=== PATIENT | female | born 2005 | race African-American/Black ===

== ENCOUNTER 2023-09-30 06:17 | Emergency (ER) | payer MEDICAID, SELFPAY ==
[2023-09-30 06:20] VITALS: BP 134/86; PULSE 99; RESP 20; TEMP 36.8; O2SAT 100
--- NOTE | 2023-09-30 06:24 | ED.BACK ---
HPI - Back Pain/Injury General Chief Complaint: Back Pain/Injury <Sarahi Reynolds MD - Last Filed: 09/30/23 19:59> Stated Complaint: lower back pain <Sarahi Reynolds MD - Last Filed: 09/30/23 19:59> Time Seen by Provider: 09/30/23 06:19 <Sarahi Reynolds MD - Last Filed: 09/30/23 19:59> History of Present Illness HPI Narrative: Patient presents with left lower back pain that started yesterday, denies any recent trauma or injury that she can think of, no dysuria, no fevers or chills or nausea or vomiting. Has not had symptoms like this before. Did try taking ibuprofen which did not help. <Sarahi Reynolds MD - Last Filed: 09/30/23 19:59> Related Data Allergies/Adverse Reactions: Allergies Allergy/AdvReac Type Severity Reaction Status Date / Time No Known Allergies Allergy Verified 09/30/23 06:23 <Sarahi Reynolds MD - Last Filed: 09/30/23 19:59> Review of Systems Review of Systems: All systems reviewed & are unremarkable except as noted in HPI and below <Sarahi Reynolds MD - Last Filed: 09/30/23 19:59> Exam Narrative: EXAMINATION OF ORGAN SYSTEMS/BODY AREAS: Constitutional: Vital signs per nursing GENERAL:[No acute distress, non-toxic appearing.] HEAD: Normal with no signs of head trauma. EYES: EOMI, conjunctiva normal ENT: Hearing grossly intact LUNGS: Nonlabored breathing. HEART: [Regular rate and rhythm] ABD: [Soft], [non tender to palpation] BACK: Mild tenderness to left lower back; no midline tenderness; no significant CVA tenderness EXT: Normal range of motion SKIN: [No rashes or lesions.] NEURO: [Alert and oriented x 3. No gross focal sensory or strength deficits.] Ambulating with normal steady gait PSYCH: Normal affect <Sarahi Reynolds MD - Last Filed: 09/30/23 19:59> Course Course Emergency Course: Discussed labs. Discharge home with oral antibiotics for UTI. <Brett Cadena MD - Last Filed: 09/30/23 09:33> Vital Signs Vital signs: Vital Signs Temperature 98.3 F 09/30/23 06:20 Pulse Rate 99 09/30/23 06:20 Respiratory Rate 20 09/30/23 06:20 Blood Pressure 134/86 09/30/23 06:20 Pulse Oximetry 100 09/30/23 06:20 Oxygen Delivery Room Air 09/30/23 06:20 Temperature 98.3 F 09/30/23 06:20 Pulse Rate 70 09/30/23 09:05 Respiratory Rate 17 09/30/23 09:05 Blood Pressure 116/82 09/30/23 09:05 Pulse Oximetry 100 09/30/23 09:05 Oxygen Delivery Room Air 09/30/23 06:20 <Sarahi Reynolds MD - Last Filed: 09/30/23 19:59> Vital Signs Temperature 98.3 F 09/30/23 06:20 Pulse Rate 99 09/30/23 06:20 Respiratory Rate 20 09/30/23 06:20 Blood Pressure 134/86 09/30/23 06:20 Pulse Oximetry 100 09/30/23 06:20 Oxygen Delivery Room Air 09/30/23 06:20 Temperature 98.3 F 09/30/23 06:20 Pulse Rate 70 09/30/23 09:05 Respiratory Rate 17 09/30/23 09:05 Blood Pressure 116/82 09/30/23 09:05 Pulse Oximetry 100 09/30/23 09:05 Oxygen Delivery Room Air 09/30/23 06:20 <Brett Cadena MD - Last Filed: 09/30/23 09:33> MDM - Back Pain/Injury MDM Narrative Medical decision making narrative: ED COURSE AND MEDICAL DECISION MAKINF with acute back pain. Normal motor and sensory exam. Patient able to ambulate. No evidence of acute cord compression, osteomyelitis/discitis or cauda equina without saddle anesthesia, urinary retention/incontinence, numbness/tingling in lower extremities, fever, history of IV drug use, cancer or immunosuppression. Doubt AAA or aortic dissection without severe pain/discomfort or any neurovascular deficits. I will obtain a urinalysis to rule out , doubt kidney stone without nausea or vomiting or severe pain, also considered possible UTI or pyelonephritis. Ketorolac 15mg IM given for symptomatic relief. At this time, I do not believe the patient requires imaging studies. Will reevaluate the need for further investigations after the medications. Signed out to oncom
[2023-09-30] MEDS: LIDOCAINE 5% PATCH 1 PATCH TRANSDERM (06:31)
[2023-09-30] MEDS: KETOROLAC 30 MG/ML VIAL (*BKC) IM (06:31)
[2023-09-30 06:45] LABS: Appearance Urine Cloudy (Clear); Bacteria Urine None Seen /hpf; Bilirubin Urine Negative (Negative); Blood Urine Negative (Negative); Color Urine Yellow (Yellow); Glucose Urine UA Negative (Negative); Ketones Urine Negative (Negative); Leukocyte Esterase Ur 2+ LEU/UL (Negative); Nitrate Urine Negative (Negative); Non Pathogenic Casts 0-2; Protein Urine Negative (Negative); RBC Urine 0-2 /hpf (0-2); Specific Grav Ur 1.023 (1.001-1.035); Squamous Epithelial Cell Urine Occasional /hpf (Few); Urobilinogen Urine 0.2 mg/dL (<2.0)
[2023-09-30 07:03] LABS: Add Urine Microscopic? YES
[2023-09-30 09:05] VITALS: BP 116/82; PULSE 70; RESP 17; O2SAT 100
== END 2023-09-30 09:38 | disposition home or self-care (01) ==
PROVIDERS: Emergency Medicine; Emergency Provider Emergency Medicine
DX: N39.0 Urinary tract infection, site not specified (principal); M54.50 Low back pain, unspecified
CPT/HCPCS: 81001; 81025; 87086; 96372; 99283; A9270; J1885

== ENCOUNTER 2025-04-07 06:31 | Emergency (ER) | payer OTHER, SELFPAY ==
--- NOTE | ~2025-04-07 | CT_ITS ---
EXAM/PROCEDURE: CT abdomen pelvis w con HISTORY: LLQ, rectal bleeding COMPARISON: None available. TECHNIQUE: Contrast-enhanced CT of the abdomen and pelvis FINDINGS: The bowel gas pattern is not obstructive with no free air or pneumatosis seen. Trace amount of free fluid may be present in the lower pelvis probably physiologic. Normal size appendix, aorta and gallbladder. No hydroureteronephrosis. Evaluation of the large intestine is somewhat limited due to absence of enteric contrast and pelvic contents but no discrete lesion or process seen to explain source of bleeding. Anteflex uterus and adnexal regions unremarkable. Bones appear intact. Lung bases clear and heart size normal. Liver spleen pancreas stomach and adrenal glands appear normal. Small hiatal hernia may be present. IMPRESSION: 1. No discrete lesion or mass seen to explain source of bleeding. Evaluation of the large intestine somewhat limited as above. 2. Small hiatal hernia. Reviewed, dictated and finalized at location A. [employer]
--- OUTSIDE RECORDS SUMMARY | 2025-04-07 06:34 | XMS_ITS | Clinical Summary ---
Author Organization [facility] Address [address] [place] [address] Care Team Providers Care Acid Etch Operator Name Role Phone Bayron Cortes MD Primary Care Provider [phone] Allergies No known active allergies Medications escitalopram (LEXAPRO) 10 MG tablet Take 1 tablet (10 mg total) by mouth daily. 07/01/2022 Active cetirizine (ZYRTEC) 10 MG tablet Take 1 tablet (10 mg total) by mouth daily. 30 tablet 07/21/2022 Active pseudoephedrine ER (SUDAFED 12 HOUR) 120 MG 12 hr tablet Take 1 tablet (120 mg total) by mouth every 12 (twelve) hours. 28 tablet 07/21/2022 Active Ferrous Gluconate 239 (27 Fe) MG Tab Take 1 tablet by mouth daily. 30 tablet 09/24/2024 Active Encounters Date Type Department Care Team Description 01/08/2025 5:35 PM CDT - 01/08/2025 8:[address] [facility] [place] [address] Jose Pop PA Abdominal Pain Discharge Disposition: Home or Self Care (Routine Discharge) 01/08/2025 Travel from Last 3 Months Immunizations Immunization Administration Dates Next Due PFIZER COVID-19 (ORIGINAL FO RMULATION, PURPLE CAP) mRNA, LNP-S, PF, 30 MCG/0.3 ML DOSE 12/18/2020,11/27/2020 Social History Tobacco Use Types Packs/Day Years Used Date Smoking Tobacco: Never Passive Smoke Exposure: Never Smokeless Tobacco: Never Tobacco Cessation:Counseling Given: Not Answered Alcohol Use Standard Drinks/Week Comments Not Currently 0 (1 standard drink = 0.6 oz pur e alcohol) Comments No Sex and Gender Information Value Date Recorded Sex Assigned at Female 09/24/2024 9:16 AM CDT Legal Sex Female 6:18 PM CDT Gender Identity Female 09/24/2024 9:16 AM CDT Sexual Orientation Not on file Last Filed Vital Signs Vital Sign Reading Time Taken Comments Blood Pressure 118/83 01/08/2025 7:55 PM CDT Pulse 82 01/08/2025 7:55 PM CDT Temperature 36.3 C (97.3 F) 01/08/2025 4:45 PM CDT Respiratory Rate 18 01/08/2025 7:55 PM CDT Oxygen Saturation 100% 01/08/2025 7:55 PM CDT Inhaled Oxygen Concentration - - Weight 88 kg (194 lb 0.1 oz) 01/08/2025 4:45 PM CDT Height 167.6 cm (5' 6) 01/08/2025 4:45 PM CDT Body Mass Index 31.31 01/08/2025 4:45 PM CDT Plan of Treatment Health Maintenance Due Date Last Done Comments Cervical Cancer Screening Pap Smear (Age 21 to 29) Every 3 Years 2003 Cervical Cancer Screening 2003 Annual Physical 2006 Meningococcal B Vaccine (1 of 2 - Standard) 2019 Hepatitis C 2021 DTaP, Tdap and Td Vaccines (6 - Td or Tdap) 08/31/2024 08/31/2014, 2009, 11/19/2006, Additional history exists COVID-19 Vaccine (3 - season) 2024 12/18/2020, 11/27/2020 Influenza Adult (#1) 2025 04/04/2013 Pneumococcal Vaccine: Pediatrics (0 to 5 Years) and At-Risk Patients (6 to 49 Years) Completed 04/05/2006, 2003 Hepatitis B Vaccines Completed 11/19/2006, 04/05/2006, 04/05/2006, Additional history exists HPV Vaccines Completed 11/24/2015, 08/31/2014 Meningococcal Vaccine Completed 11/24/2019, 015 Hepatitis A Vaccines Aged Out No long er eligible based on patient's age to complete this topic RSV Immunizations Under 20 Months Aged Out No longer eligible based on patient's age to complete this topic Procedures Procedure Name Priority Date/Time Associated Diagnosis Comments CT ABD+PEL W CON STAT 01/08/2025 6:50 PM CDT CULTURE, GENITAL W/ GRAM STAIN STAT 01/08/2025 5:45 PM CDT HC COMPREHENSIVE METABOLIC PANEL STAT 01/08/2025 5:45 PM CDT HC CBC AUTO W/AUTO DIFF STAT 01/08/2025 5:45 PM CDT HC HCG QN STAT 01/08/2025 5:45 PM CDT TRICHOMONAS ANTIGEN Routine 01/08/2025 5 :44 PM CDT CHLAM/GC/TRICHOMONAS PROFILE STAT 01/08/2025 5:44 PM CDT HC URINALYSIS AUTO W/O MICRO STAT 01/08/2025 5:44 PM CDT from Last 3 Months Results * CT ABD+PEL W IV CON ONLY (01/08/2025 6:50 PM CDT) Anatomical Region Laterality Modality Abdomen Computed Tomogra phy 01/08/2025 7:02 PM CDT Impressions 01/08/2025 8:15 PM CDT IMPRESSION: No acute findings within the abdomen or pelvis to explain the patient's symptoms. Preliminary: Star Khan MD01/08/2025 7:07 PM The attending radiologist has reviewed the image(s) and agrees with the content of this report. Ordered By: JOSE POP Interpreted By: Star Khan MD, 01/08/2025 7:02 PM Narrative 01/08/2025 8:15 PM CDT [address] [address] EXAMINATION: CT ABDOMEN/PELVIS WITH CONTRAST EXAM TIME: 01/08/2025 6:41 PM INDICATION: lower abdominal pain COMPARISON: None TECHNIQUE: Computed tomography of the abdomen, and pelvis was performed after administration of intravenous contrast, 100mL of IOPAMIDOL 76 % IV SOLN, without immediate complication, according to routine protocol. A dose lowering technique was used for this procedure, which may include, but is not limited to, dose reduction technique, automated exposure control, and/or the use of iterative reconstruction, in accordance with ALARA (As Low As Reasonably Achievable)/Image Gently principle. FINDINGS: Lower Chest: The visualized portions of the lung bases appear unremarkable. The visualized mediastinum demonstrates no pericardial effusion. The heart is normal in size. Hepatobiliary: The liver is normal in size and contour. The pancreas is negative. The gallbladder appears grossly normal. No biliary duct dilatation is noted. Genitourinary: The adrenal glands are normal. The kidneys enhance symmetrically. No renal calculus or hydronephrosis is seen. The urinary bladder is partially distended. The uterus and ovaries appear grossly normal. Gastrointestinal: No bowel obstruction or bowel wall thickening is seen. The appendix is normal. Moderate colonic stool burden is noted. Peritoneum: There is no free intraperitoneal air or fluid. Lymphatics: The spleen is normal in size. No mesenteric or retroperitoneal lymphadenopathy is seen. No pelvic or inguinal lymphadenopathy is seen. Vascular: The abdominal aorta is normal in caliber. The visceral vessels are patent. Musculoskeletal: No acute osseous abnormality or destructive bone lesion is identified. There is levocurvature of the thoracolumbar spine. Procedure Note Chris Byrd MD - 01/08/[address] [address] EXAMINATION: CT ABDOMEN/PELVIS WITH CONTRAST EXAM TIME: 01/08/2025 6:41 PM INDICATION: lower abdominal pain COMPARISON: None TECHNIQUE: Computed tomography of the abdomen, and pelvis was performedafter administration of intravenous contrast, 100mL of IOPAMIDOL 76 % IVSOLN, without immediate complication, according to routine protocol. Adose lowering technique was used for this procedure, which may include,but is not limited to, dose reduction technique, automated exposurecontrol, and/or the use of iterative reconstruction, in accordance withALARA (As Low As Reasonably Achievable)/Image Gently principle. FINDINGS: Lower Chest: The visualized portions of the lung bases appearunremarkable. The visualized mediastinum demonstrates no pericardialeffusion. The heart is normal in size. Hepatobiliary: The liver is normal in size and contour. The pancreas isnegative. The gallbladder appears grossly normal. No biliary ductdilatation is noted. Genitourinary: The adrenal glands are normal. The kidneys enhancesymmetrically. No renal calculus or hydronephrosis is seen. The urinarybladder is partially distended. The uterus and ovaries appear grosslynormal. Gastrointestinal: No bowel obstruction or bowel wall thickening is seen.The appendix is normal. Moderate colonic stool burden is noted. Peritoneum: There is no free intraperitoneal air or fluid. Lymphatics: The spleen is normal in size. No mesenteric or retroperitoneallymphadenopathy is seen. No pelvic or inguinal lymphadenopathy is seen. Vascular: The abdominal aorta is normal in caliber. The visceral vesselsare patent. Musculoskeletal: No acute osseous abnormality or destructive bone lesionis identified. There is levocurvature of the thoracolumbar spine. IMPRESSION: No acute findings within the abdomen or pelvis to explain the patient'ssymptoms. Preliminary: Star Khan MD01/08/2025 7:07 PM The attending radiologist has reviewed the image(s) and agrees with thecontent of this report. Ordered By: JOSE POP Interpreted By: Star Khan MD, 01/08/2025 7:[address] Final Resul t * (ABNORMAL) CULTURE, GENITAL W/ GRAM STAIN (01/08/2025 5:45 PM CDT) SPEC DESCRIPTION VAGINAL SPECIMEN 01/08/2025 6:06 PM CDT [facility] SPECIAL REQUESTS NO SPECIAL REQUEST 01/08/2025 6:06 PM CDT [facility] GRAM STAIN RESULT NEGATIVE FOR BACTERIAL VAGINOSIS 01/08/2025 9:34 PM CDT [facility] GRAM STAIN RESULT NO YEAST SEEN 01/08/2025 9:34 PM CDT [facility] CULTURE RESULT SPARSE GROWTH OF NORMAL ADITHYA PRESENT 01/10/2025 9:44 AM CDT [facility] CULTURE RESULT SPARSE GROWTH OF STREPTOCOCCI, BETA HEMOLYTIC GROUP B SUSCEPTIBILTY NOT ROUTINELY PERFORMED. SAVING ISOLATE FOR 5 DAYS. CONTACT MICROBIOLOGY DEPARTMENT IF FURTHER WORKUP IS INDICATED. (A) 01/10/2025 9:44 AM CDT [facility] VAGINAL STRUCTURE / Unknown 01/08/2025 5:45 PM CDT 01/08/2025 6:11 PM CDT Jose CREWS MICROBIOLOGY - GENERAL KRISTI POWERS Final Result [facility] [address] [place] [address], * (ABNORMAL) COMPREHENSIVE METABOLIC PANEL (01/08/2025 5:45 PM CDT) GLUCOSE 84 70 - 99 MG/DL 01/08/2025 6:36 PM CDT [facility] BUN 14 7 - 18 MG/DL 01/08/2025 6:36 PM CDT [facility] CREATININE S/P/B 0.75 0.55 - 1.02 MG/DL 01/08/2025 6:36 PM CDT [facility] SODIUM S/P/B 138 136 - 145 MMOL/L 01/08/2025 6:36 PM CDT [facility] POTASSIUM S/P/B 4.0 3.5 - 5.1 MMOL/L 01/08/2025 6:36 PM CDT [facility] CHLORIDE S/P/B 104 97 - 115 MMOL/L 01/08/2025 6:36 PM CDT [facility] CO2 27.2 21 - 32 MMOL/L 01/08/2025 6:36 PM CDT [facility] CALCIUM S/P/B 9.4 8.5 - 10.1 MG/DL 01/08/2025 6:36 PM CDT [facility] BILIRUBIN TOTAL S/P/B 0.3 0.2 - 1.2 MG/DL 01/08/2025 6:36 PM CDT [facility] Comment: THIS ASSAY IS NOT RECOMMENDED FOR PATIENTS UNDERGOING TREATMENT WITH ELTROMBOPAG DUE TO THE POTENTIAL FOR FALSELY ELEVATED RESULTS. TOTAL PROTEIN S/P/B 8.4(H) 6.4 - 8.2 G/DL 01/08/2025 6:36 PM CDT [facility] ALBUMIN S/P/B 3.8 3.4 - 5.0 G/DL 01/08/2025 6:36 PM CDT [facility] AST 9(L) 15 - 37 U/L 01/08/2025 6:36 PM T [facility] ALT 17 14 - 55 U/L 01/08/2025 6:36 PM CDT [facility] ALKALINE PHOSPHATASE S/P/B 80 50 - 136 U/L 01/08/2025 6:36 PM T [facility] ANION GAP 6.8 2 - 10 MMOL/L 01/08/2025 6:36 PM CDT [facility] BUN CREATININE RATIO 18.6 6 - 26 01/08/2025 6:36 PM CDT [facility] A/G RATIO 0.8(L) 1.0 - 2.0 RATIO 01/08/2025 6:36 PM CDT [facility] GFR ESTIMATE >90 >90 ML/MIN/1.7 3 M2 01/08/2025 6:36 PM CDT [facility] Comment: NOTE: eGFR is not calculated for patients <18 years of age or gender unknown. This is an estimated GFR calculation using the new CKD EPI creatinine equation without race and so does not require a correction factor for race. This estimated GFR should not be used for calculating drug doses. 01/08/2025 5:45 PM CDT [facility] Final Resul t Performing Organization Address City/[facility]/ZIP Co de Phone Number [facility] [address] [place] [phone], * Quantitative HCG (01/08/2025 5:45 PM CDT) HCG QUANTITATIVE <1 MIU/ML 01/09/20 6:36 PM CDT [facility] Comment: WEEKS OF REFERENCE RANGES Non- female < or = 2 0.2 - 1 5 - 50 1 - 2 50 - 500 2 - 3 100 - 5000 3 - 4 500 - 10,000 4 - 5 1000 - 50,000 5 - 6 10,000 - 100,000 6 - 8 15,000 - 200,000 2 - 3 MONTHS 10,000 - 100,000 01/08/2025 5:45 PM CDT [facility] Final Resul t [facility] [address] [place] [address], [place] [phone] * (ABNORMAL) CBC W/DIFF AUTOMATED (01/08/2025 5:45 PM CDT) WBC 9.38 4.5 - 11.0 x10'3/uL 01/08/2025 6:26 PM CDT [facility] RBC 4.67 4.20 - 5.40 x10'6/uL 01/08/2025 6:26 PM CDT [facility] HGB 10.7(L) 12.0 - 16.0 G/DL 01/08/2025 6:26 PM CDT [facility] HCT 34.4(L) 38.0 - 48.0 % 01/08/2025 6:26 PM CDT [facility] MCV 73.7(L) 81.0 - 99.0 FL 01/08/2025 6:26 PM CDT [facility] MCH 22.9(L) 27.0 - 31.0 PG 01/08/2025 6:26 PM CDT [facility] MCHC 31.1(L) 32.0 - 36.0 G/DL 01/08/2025 6:26 PM CDT [facility] RDW 16.7(H) 11.5 - 14.5 % 01/08/2025 6:26 PM CDT [facility] PLT 398 130 - 400 x10'3/uL 01/08/2025 6:26 PM CDT [facility] MPV 8.8(L) 9.3 - 12.2 FL 01/08/2025 6:26 PM CDT [facility] DIFFERENTIAL TYPE AUTOMATED DIFFERENTIAL 01/08/2025 6:46 PM CDT [facility] NEUTROPHILS % 53.1 % 01/08/2025 6:46 PM CDT [facility] LYMPHOCYTES % 40.7 % 01/08/2025 6:46 PM CDT [facility] MONOCYTES % 5.1 % 01/08/2025 6:46 PM CDT [facility] EOSINOPHILS 0.4 % 01/08/2025 6:46 PM CDT [facility] BASOPHILS 0.4 % 01/08/2025 6:46 PM CDT [facility] IMMATURE GRANS % 0.3 % 01/09/20 6:46 PM CDT [facility] ABS. NEUTROPHILS 4.97 1.80 - 7.70 x10'3/uL 01/08/2025 6:46 PM CDT [facility] ABS. LYMPHOCYTES 3.82 1.00 - 4.80 x10'3/uL 01/08/2025 6:46 PM CDT [facility] ABS. MONOCYTES 0.48 0.24 - 0.86 x10'3/uL 01/08/2025 6:46 PM CDT [facility] ABS. EOSINOPHILS 0.04 0.04 - 0.36 x10'3/uL 01/08/2025 6:46 PM CDT [facility] ABS. BASOPHILS 0.04 0.01 - 0.08 x10'3/uL 01/08/2025 6:46 PM CDT [facility] ABS. IMMATURE GRANULOCYTES 0.03 0.00 - 0.49 x10'3/uL 01/08/2025 6:46 PM CDT [facility] RBC MORPHOLOGY SLIDE REVIEWED 2024 6:46 PM CDT [facility] HYPOCHROMASIA 1+ 01/08/2025 6:46 PM CDT [facility] MICRO 1+ 01/08/2025 6:46 PM CDT [facility] PLT EST. ADEQUATE 01/08/2025 6:46 PM CDT [facility] 01/08/2025 5:45 PM CDT [facility] Final Resul t [facility] [address] [place] [address], [place] [phone] * TRICHOMONAS ANTIGEN (01/08/2025 5:44 PM CDT) TRICHOMONAS NEGATIVE NEGATIVE 01/08/2025 6:41 PM CDT [facility] 01/08/2025 5:44 PM CDT Jose [facility]WS MICROBIOLOGY - GENERAL ORDE RABROSIE Final Result [facility] [address] [place] [address], [place] [phone] * CHLAM/GC/TRICHOMONAS PROFILE (01/08/2025 5:44 PM CDT) SPEC DESCRIPTION UNKNOWN 01/09/20 25 6:11 PM CDT [facility] CHLAMYDIA RNA TMA NEGATIVE NEGATIVE 025 2:48 PM CDT [facility] Comment:PERFORMED BY NUCLEIC ACID AMPLIFICATION N.GONORRHOEAE RNA TMA NEGATIVE NEGATIVE 01/09/2025 2:48 PM CDT [facility] Comment:PERFORMED BY NUCLEIC ACID AMPLIFICATION TRICHOMONAS NEGATIVE NEGATIVE 01/09/2025 2:48 PM CDT [facility] Comment:PERFORMED BY NUCLEIC ACID AMPLIFICATION VAGINAL STRUCTURE / Unknown 01/08/2025 5:44 PM CDT Jose CREWS MICROBIOLOGY - GENERAL ORDLarry POWERS Final Result [facility] [address] [place] [address], [place] [phone] [facility] [address] [place] [address], [place] [phone] * URINALYSIS (01/08/2025 5:44 PM CDT) SPECIMEN TYPE URINE CLEAN CATCH 01/08/2025 6:05 PM CDT [facility] COLOR (U) LIGHT YELLOW 01/08/2025 6:18 PM CDT [facility] TRANSPARENCY CLEAR 01/08/2025 6:18 PM CDT [facility] SPECIFIC GRAVITY (U) 1.025 1.001 - 1.030 01/08/2025 6:18 PM CDT [facility] U PH 6.5 5.0 - 9.0 01/08/2025 6:18 PM CDT [facility] LEUKOCYTES (U) NEGATIVE NEGATIVE 01/08/2025 6:18 PM CDT [facility] NITRITES NEGATIVE NEGATIVE 01/08/2025 6:18 PM CDT [facility] PROTEIN RANDOM (U) NEGATIVE <30 MG/DL 01/08/2025 6:18 PM CDT [facility] GLUCOSE (U) NORMAL NORMAL MG/DL 01/08/2025 6:18 PM CDT [facility] KETONES MG/DL (U) NEGATIVE NEGATIVE MG/DL 01/08/2025 6:18 PM CDT [facility] UROBILINOGEN NORMAL NORMAL MG/DL 01/08/2025 6:18 PM CDT [facility] BILIRUBIN (U) NEGATIVE NEGATIVE MG/DL 01/08/2025 6:18 PM CDT [facility] BLOOD (U) NEGATIVE NEGATIVE 01/08/2025 6:18 PM CDT [facility] URINE SPECIMEN OBTAINED BY CLEAN CATCH PROCEDURE / Unknown 01/08/2025 5:44 PM CDT us Jose CREWS URINE ORDERABLES Final Resu lt [facility] [address] [place] [address], from Last 3 Months Insurance [employer] Care Teams Acid Etch Operator Relationship Specialty Start Date End Date Bayron Cortes MD [address] [facility] [address] [place] [address] PCP - General FAMILY PRACTICE 03/31/24
--- OUTSIDE RECORDS SUMMARY | 2025-04-07 06:34 | XMS_ITS | Clinical Summary ---
Author Organization [facility] Address [address] [place] [id number] Care Team Providers Care Registered Nurse Nursery Name Role Phone Bayron Cortes MD Primary Care Provider [phone] Allergies No known active allergies Medications ondansetron ODT (ZOFRAN-ODT) 4 mg disintegrating tablet Take 1 tablet (4 mg total) by mouth every 8 (eight) hours as needed for nausea or vomiting 20 tablet 5 Active ketorolac (TORADOL) 10 mg tablet Take 1 tablet (10 mg total) by mouth every 6 (six) hours as needed for pain 20 tablet 5 Active Active Problems No known active problems Encounters Date Type Department Care Team Description 03/03/[address] [address] Suzette Celeste RN 03/02/2025 4:46 AM VETERINARY TECHNICIAN ASSISTANT - 03/02/2025 6:36 AM VETERINARY TECHNICIAN ASSISTANT Emergency [address] [address] Discharge Disposition: Left without being seen 01/22/2025 Patient Self-Triage [facility] [address] [place] [address] Oviido Bui Provider 01/07/2025 3:20 AM CDT - 01/07/2025 4:01 AM CDT Emergency [address] [address] Abdominal pain (Primary Dx); Vaginal discharge; Viral URI; Anemia, unspecified type Discharge Disposition: Discharge to home or self care 01/07/[address] [address] Suzette Celeste RN 01/06/2025 10:51 AM CDT - 01/06/2025 1:18 PM CDT Emergency [address] [address] Discharge Disposition: Left without being seen from Last 3 Months Medical History Medical History Date Comments Depression Anemia Anxiety Tachycardia Asthma SVT (supraventricular tachycardia) Social History Tobacco Use Types Packs/Day Years Used Date Smoking Tobacco: Never Tobacco Cessation:Counseling Given: Not Answered Personal Safety Answer Date Recorded Have you ever been in or are you currently in a harmful physical or emotional relationship or is someone making you feel afraid or unsafe? Denies 03/02/2025 Comments Unknown Sex and Gender Information Value Date Recorded Sex Assigned at Not on file Legal Sex Female 7:58 PM CDT Gender Identity Not on file Sexual Orientation Not on file Last Filed Vital Signs Vital Sign Reading Time Taken Comments Blood Pressure 126/81 03/02/2025 4:50 AM VETERINARY TECHNICIAN ASSISTANT Pulse 85 03/02/2025 4:50 AM VETERINARY TECHNICIAN ASSISTANT Temperature 37.1 C (98.8 F) 03/02/2025 4:50 AM VETERINARY TECHNICIAN ASSISTANT Respiratory Rate 18 03/02/2025 4:50 AM VETERINARY TECHNICIAN ASSISTANT Oxygen Saturation 100% 03/02/2025 4:50 AM VETERINARY TECHNICIAN ASSISTANT Inhaled Oxygen Concentration - - Weight 87.5 kg (193 lb) 01/07/2025 1:39 AM CDT Height 167.6 cm (5' 6) 01/07/2025 1:39 AM CDT Body Mass Index 31.15 01/07/2025 1:39 AM CDT Plan of Treatment Health Maintenance Due Date Last Done Comments Cervical Cancer Screening 2003 Depression Screening 2003 Hepatitis C Screening 2003 Meningococcal B Vaccine (1 o f 2 - Standard) 2019 Regular Well Visit/Exam 18-64 2021 DTaP/Tdap/Td Vaccine (6 - Td or Tdap) 08/31/2024 08/31/2014, 2009, 11/19/2006, Additional history exists Covid-19 Vaccine (3 - 2024-2 6 season) 2024 12/18/2020, 11/27/2020 Influenza Vaccine (#1) 2024 04/04/2013 Pneumococcal vaccine <65 Completed 04/05/2006, 02/21 Hepatitis B Screening Completed 11/19/2006 , 04/05/2006, 04/05/2006, Additional history exists Varicella Vaccines Completed 2009, 0 11/19/2006, 04/05/2006 HPV Vaccines Completed 11/24/2015, 08/31/2014 Procedures Procedure Name Priority Date/Time Associated Diagnosis Comments URINALYSIS, MICROSCOPIC ONLY STAT 03/02/2025 5:10 AM VETERINARY TECHNICIAN ASSISTANT URINE CULTURE STAT 03/02/2025 5:10 AM VETERINARY TECHNICIAN ASSISTANT URINALYSIS AND REFLEX TO MICROSCOPIC AND CULTURE STAT 03/02/2025 5:10 AM VETERINARY TECHNICIAN ASSISTANT POCT HCG, URINE Routine 03/02/2025 5:00 AM VETERINARY TECHNICIAN ASSISTANT EGFR STAT 03/02/2025 4:59 AM VETERINARY TECHNICIAN ASSISTANT DIFFERENTIAL AUTO STAT 03/02/2025 4:5 9 AM VETERINARY TECHNICIAN ASSISTANT ANTIBODY SCREEN STAT 03/02/2025 4:59 AM VETERINARY TECHNICIAN ASSISTANT ABO/RH STAT 03/02/2025 4:59 AM VETERINARY TECHNICIAN ASSISTANT TYPE AND SCREEN STAT 03/02/2025 4:59 AM VETERINARY TECHNICIAN ASSISTANT COMPREHENSIVE METABOLIC PANEL STAT 03/02/2025 4:59 AM VETERINARY TECHNICIAN ASSISTANT CBC WITH AUTO DIFFERENTIAL STAT 03/02/2025 4:59 AM VETERINARY TECHNICIAN ASSISTANT VAGINITIS PANEL Routine 01/07/2025 3:47 AM CDT POCT HCG, URINE Routine 01/07/2025 1:58 AM CDT URINALYSIS, MICROSCOPIC ONLY STAT 01/07/2025 1:56 AM CDT URINALYSIS AND REFLEX TO MICROSCOPIC AND CULTURE STAT 01/07/2025 1:56 AM CDT EGFR STAT 01/07/2025 1:52 AM CDT DIFFERENTIAL AUTO STAT 01/07/2025 1:5 2 AM CDT LIPASE STAT 01/07/2025 1:52 AM CDT COMPREHENSIVE METABOLIC PANEL STAT 01/07/2025 1:52 AM CDT CBC WITH AUTO DIFFERENTIAL STAT 01/07/2025 1:52 AM CDT STREPTOCOCCUS GROUP A PCR STAT 01/06/2025 11:02 AM CDT INFLUENZA A/B, RSV, AND COVID-19 PCR STAT 01/06/2025 11:02 AM CDT from Last 3 Months Results * (ABNORMAL) Urinalysis reflex to microscopic and culture Urine (03/02/2025 5:10 AM VETERINARY TECHNICIAN ASSISTANT) Color, ur Red(A) Yellow Clarity, ur Turbid(A) Clear [facility] Specific gravity, ur 1.035(H) 1.003 - 1.030 [facility] pH, urine 6.5 [facility] Comment: Interpretive Data U rine pH is affected by diet, medications, systemic acid-base disturbances, and renal tubular function. pH may affect urinary stone formation. For example, urine pH below 6.0 may help reduce the tendency for calcium phosphate stones and pH greater than 6.0 may reduce the tendency for uric acid stone formation. Source: [facility] 9+ Current Interpretive Data was last revised on 2017 Protein, ur ql 1+(A) Negative [facility] Glucose, ur ql Negative Negative [facility] Ketones, ur Trace Negative [facility] Bilirubin, ur Negative Negative [facility] Blood, ur 3+(A) Negative [facility] Urobilinogen, ur 2.0(A) <2.0 mg/dL [facility] Nitrite, ur Negative Negative [facility] Leukocyte esterase, ur 3+(A) Negative [facility] UA reflex comment Reflex to microscopic UA will be performed. [facility] Urine 03/02/2025 5:10 AM VETERINARY TECHNICIAN ASSISTANT 03/02/2025 5:14 AM VETERINARY TECHNICIAN ASSISTANT Ernestine CREWS LAB MICROBIOLOGY - GENERAL ORDE RABLES Final Result Performing Organization Address [facility] de Phone Number [address] [address] * (ABNORMAL) Urinalysis, microscopic only (03/02/2025 5:10 AM VETERINARY TECHNICIAN ASSISTANT) WBC, ur 21-50(A) 0 - 5 /HPF RBC, ur >50(A) 0 - 2 /HPF [facility] Epithelial cells, squamous, ur 6-10(A) 0 - 5 /HPF [facility] Comment:Suggestive of contam ination. Consider recollection by clean catch. Mucous, ur Present(A) [facility] Culture Reflex Comment Reflex to urine culture will be performed. [facility] Urine 03/02/2025 5:10 AM VETERINARY TECHNICIAN ASSISTANT 03/02/2025 5:14 AM VETERINARY TECHNICIAN ASSISTANT us Ernestine CREWS LAB URINE ORDERABLES Final Resu lt Performing Organization Address [facility] de Phone Number [address] [address] * Urine culture Urine (03/02/2025 5:10 AM VETERINARY TECHNICIAN ASSISTANT) Report Final Report: Less than 100,000 colonies/mL (clinically insignificant growth based on current clinical standards) Comment:Testing performed by : [facility], [address] [facility], [place]., [address] Organism (CLINICALLY INSIGNIFICANT GROWTH [facility] Urine 03/02/2025 5:10 AM VETERINARY TECHNICIAN ASSISTANT 03/02/2025 9:04 AM VETERINARY TECHNICIAN ASSISTANT Narrative [facility] - 03/03/2025 10:54 AM VETERINARY TECHNICIAN ASSISTANT Urine culture reflexed based upon urinalysis results. Testing performed by [facility] ([phone]) us Ernestine CREWS LAB MICROBIOLOGY - GENERAL ORDE RABLES Final Result [facility]LLA [address] [facility] Department [place] [address] * POCT hCG, urine (03/02/2025 5:00 AM VETERINARY TECHNICIAN ASSISTANT) HCG, ur, POC Negative Negative Lot Number [id number] QC Backgroud Clear Acceptable QC Control Line Acceptable Urine 03/02/2025 5:00 AM VETERINARY TECHNICIAN ASSISTANT Ernestine CREWS POINT OF CARE TEST ORDERABLES F inal Result * eGFR (03/02/2025 4:59 AM VETERINARY TECHNICIAN ASSISTANT) eGFR >90 >=60 mL/min/1. 73 m2 Comment: Interpretive Data Reference Interval Normal >/= 90 mL/min/1.73m2 Mildly decreased* 60 - 89 mL/min/1.73m2 Mildly to moderately decreased 45 - 59 mL/min/1.73m2 Moderately to severely decreased 30 - 44 mL/min/1.73m2 Severely decreased 15 - 29 mL/min/1.73m2 Kidney Failure < 15 mL/min/1.73m2 *Relative to young adult level Estimated glomerular filtration rate is determined by the 2020 CKD-EPI equation recommended by the National Kidney Foundation (A Unifying Approach to GFR Estimation: Recommendations of the NKF-ASK Task Force on Reassessing the Inclusion of Race in Diagnosing Kidney Disease, JASN 2020). The CKD-EPI equation should not be used for patients with unstable renal function and has not been validated in children and those over 70. Current interpretive data was last reviewed 2021. Blood 03/02/2025 4:59 AM VETERINARY TECHNICIAN ASSISTANT 03/02/2025 5:14 AM VETERINARY TECHNICIAN ASSISTANT us Ernestine CREWS LAB BLOOD ORDERABLES Final Resu lt [facility] [address] [facility] Department [place] [address] * Differential, auto (03/02/2025 4:59 AM VETERINARY TECHNICIAN ASSISTANT) Neutrophil abs 4.03 1.50 - 6.50 K/cumm Imm gran abs 0.01 0.00 - 0.10 K/cumm [facility] Lymphocyte abs 3.06 0.80 - 3.30 K/cumm [facility] Monocyte abs 0.52 0.20 - 0.80 K/cumm [facility] Eosinophil abs 0.06 0.00 - 0.50 K/cumm [facility] Basophil abs 0.03 0.00 - 0.10 K/cumm [facility] Neutrophil pct 52.3 % [facility] Comment: Interpretive Data Percent cell count reference ranges are not reported, since discordance with absolute values may lead to misinterpretation of CBC data. Current Interpretive Data was last revised on 2017. Imm gran pct 0.1 % [facility] Comment: Interpretive Data Percent cell count reference ranges are not reported, since discordance with absolute values may lead to misinterpretation of CBC data. Current Interpretive Data was last revised on 2017. Lymphocyte pct 39.7 % [facility] Comment: Interpretive Data Percent cell count reference ranges are not reported, since discordance with absolute values may lead to misinterpretation of CBC data. Current Interpretive Data was last revised on 2017. Monocyte pct 6.7 % [facility] Comment: Interpretive Data Percent cell count reference ranges are not reported, since discordance with absolute values may lead to misinterpretation of CBC data. Current Interpretive Data was last revised on 2017. Eosinophil pct 0.8 % [facility] Comment: Interpretive Data Percent cell count reference ranges are not reported, since discordance with absolute values may lead to misinterpretation of CBC data. Current Interpretive Data was last revised on 2017. Basophil pct 0.4 % [facility] Comment: Interpretive Data Percent cell count reference ranges are not reported, since discordance with absolute values may lead to misinterpretation of CBC data. Current Interpretive Data was last revised on 2017. Blood 03/02/2025 4:59 AM VETERINARY TECHNICIAN ASSISTANT 03/02/2025 5:14 AM VETERINARY TECHNICIAN ASSISTANT Ernestine CREWS LAB BLOOD ORDERABLES Final Resu lt [facility] BELLA [address] [place] [address] * (ABNORMAL) CBC with auto differential (03/02/2025 4:59 AM VETERINARY TECHNICIAN ASSISTANT) [facility] WBC 7.71 3.80 - 9.90 K/cumm Hgb 10.6(L) 11.9 - 15.5 g/dL [facility] Hct 35.1(L) 35.6 - 45.5 % [facility] Plt 418(H) 150 - 400 K/cumm [facility] MPV 8.6(L) 9.1 - 12.3 fL [facility] RBC 4.48 3.90 - 5.20 M/cumm [facility] MCV 78.3(L) 81.3 - 96.4 fL [facility] MCH 23.7(L) 27.1 - 33.3 pg [facility] MCHC 30.2(L) 32.3 - 35.7 g/dL [facility] RDW CV 16.7(H) 11.1 - 14.9 % [facility] RDW SD 47.7 35.7 - 48.1 fL [facility] NRBC abs 0.00 0.00 - 0.01 K/cumm [facility] Blood Venous blood specimen / Unknown 03/02/2025 4:59 AM VETERINARY TECHNICIAN ASSISTANT 03/02/2025 5:14 AM VETERINARY TECHNICIAN ASSISTANT Ernestine CREWS LAB BLOOD ORDERABLES Final Resu lt REBECCA [address] [place] [address] * ABO/Rh (03/02/2025 4:59 AM VETERINARY TECHNICIAN ASSISTANT) [facility] ABO/Rh O Negative Blood 03/02/2025 4:59 AM VETERINARY TECHNICIAN ASSISTANT 03/02/2025 5:14 AM VETERINARY TECHNICIAN ASSISTANT Narrative [facility] - 03/02/2025 5:51 AM VETERINARY TECHNICIAN ASSISTANT Has the patient had Daratumumab or Isatuximab in the past 6 months?->Unknown Ernestine CREWS LAB BLOOD BANK TEST ORDERABLES Final Result Performing Organization Address [facility] de Phone Number [address] [address] * Antibody screen (03/02/2025 4:59 AM VETERINARY TECHNICIAN ASSISTANT) [facility] Oziel, indirect, Gel Interpretation Negative ABSC Blood 03/02/2025 4:59 AM VETERINARY TECHNICIAN ASSISTANT 03/02/2025 5:14 AM VETERINARY TECHNICIAN ASSISTANT Narrative [facility] - 03/02/2025 5:51 AM VETERINARY TECHNICIAN ASSISTANT Has the patient had Daratumumab or Isatuximab in the past 6 months?->Unknown Ernestine CREWS LAB BLOOD BANK TEST ORDERABLES Final Result Performing Organization Address [facility] Phone Number [address] [address] * Comprehensive metabolic panel (03/02/2025 4:59 AM VETERINARY TECHNICIAN ASSISTANT) [facility] Sodium 141 135 - 145 mmol/L Potassium, pl 4.3 3.3 - 4.9 mmol/L [facility] Chloride 106 97 - 110 mmol/L [facility] CO2 24 22 - 32 mmol/L [facility] Anion gap 11 2 - 15 mmol/L [facility] BUN 19 6 - 25 mg/dL [facility] Creatinine 0.69 0.60 - 1.10 mg/dL [facility] Glucose 98 70 - 199 mg/dL [facility] Comment: Interpretive Data Fasting glucose >/= 126 mg/dl is diagnostic for diabetes. Fasting is defined as no caloric intake for at least 8 hours. Fasting glucose between 100 mg/dl to 125 mg/dl is diagnostic of prediabetes. In a patient with classic symptoms of hyperglycemia or hyperglycemic crisis, a random glucose >/= 200 mg/dl is diagnostic for diabetes. In the absence of unequivocal hyperglycemia, results should be confirmed by repeat testing. The classification and Diagnosis of Diabetes Diabetes Care 2021; 46: S19-S40. Current interpretive data was last revised 2022. Calcium 9.2 8.5 - 10.3 mg/dL [facility] Bilirubin, total <0.2 0.1 - 1.2 mg/dL [facility] Protein, pl 7.8 6.5 - 8.5 g/dL [facility] Albumin 4.1 3.5 - 5.0 g/dL [facility] Alk phos 77 40 - 130 Units/L [facility] ALT 8 7 - 45 Units/L [facility] AST 16 10 - 45 Units/L [facility] Blood 03/02/2025 4:59 AM VETERINARY TECHNICIAN ASSISTANT 03/02/2025 5:14 AM VETERINARY TECHNICIAN ASSISTANT Ernestine CREWS LAB BLOOD ORDERABLES Final Resu lt [facility] [address] [facility] Department [place] [address] * Vaginitis panel Vaginal (01/07/2025 3:47 AM CDT) Bacterial Vaginosis Not Detected Not Detected Comment:A negative result do es not preclude a possible infection. Results should be considered in conjunction with clinical presentation to determine the disease status. [place] group Not Detected Not Detected [facility] Georgia glabrata/ krusei Not Detected Not Detected [facility] Trichomonas DNA Not Detected Not Detected [facility] Vaginal 01/07/2025 3:47 AM CDT 01/07/2025 3:49 AM CDT Narrative [facility] - 01/07/2025 5:06 AM CDT The [employer] Xpert Xpress MVP test detects DNA targets from anaerobic bacteria associated with bacterial vaginosis, [place] species associated with vulvovaginal candidiasis, and Trichomonas vaginalis by nucleic acid amplification testing (NAAT). Results should be interpreted in conjunction with other clinical data. This test cannot be used to assess therapeutic success or failure because target nucleic acids may persist following antimicrobial therapy. This test has been cleared by the [place] Food and Drug Administration to aid in the diagnosis of vaginal infections in symptomatic women ages 14 and older. The performance characteristics of this test have been verified by the [facility]. The [employer] Xpert Xpress MVP test detects DNA targets from anaerobic bacteria associated with bacterial vaginosis, [place] species associated with vulvovaginal candidiasis, and Trichomonas vaginalis by nucleic acid amplification testing (NAAT). Results should be interpreted in conjunction with other clinical data. This test cannot be used to assess therapeutic success or failure because target nucleic acids may persist following antimicrobial therapy. This test has been cleared by the [place] Food and Drug Administration to aid in the diagnosis of vaginal infections in symptomatic women ages 14 and older. The performance characteristics of this test have been verified by the [facility]. us Thai CREWS LAB MICROBIOLOGY - GENERAL O RDERABLES Final Result [facility] [address] [facility] Department [place] [address] * POCT hCG, urine (01/07/2025 1:58 AM CDT) HCG, ur, POC Negative Negative Lot Number [id number] QC Backgroud Clear Acceptable QC Control Line Acceptable Urine 01/07/2025 1:58 AM CDT Tin Evans MD POINT OF CARE TEST ORDERABLES Fi nal Result * (ABNORMAL) Urinalysis reflex to microscopic and culture Urine (01/07/2025 1:56 AM CDT) Color, ur Yellow Yellow Clarity, ur Cloudy(A) Clear [facility] Specific gravity, ur 1.032(H) 1.003 - 1.030 [facility] pH, urine 6.0 [facility] Comment: Interpretive Data U rine pH is affected by diet, medications, systemic acid-base disturbances, and renal tubular function. pH may affect urinary stone formation. For example, urine pH below 6.0 may help reduce the tendency for calcium phosphate stones and pH greater than 6.0 may reduce the tendency for uric acid stone formation. Source: [facility] 9+ Current Interpretive Data was last revised on 2017 Protein, ur ql 1+(A) Negative [facility] Glucose, ur ql Negative Negative [facility] Ketones, ur Trace Negative [facility] Bilirubin, ur Negative Negative [facility] Blood, ur Negative Negative [facility] Urobilinogen, ur 2.0(A) <2.0 mg/dL [facility] Nitrite, ur Negative Negative [facility] Leukocyte esterase, ur 2+(A) Negative [facility] UA reflex comment Reflex to microscopic UA will be performed. [facility] Urine 01/07/2025 1:56 AM CDT 01/07/2025 2:02 AM CDT Tin Evans MD LAB MICROBIOLOGY - GENERAL ORDER YUSUF Final Result Performing Organization Address [facility] de Phone Number [address] [employer] [place], [place] [id number] * (ABNORMAL) Urinalysis, microscopic only (01/07/2025 1:56 AM CDT) Pathologist [facility] WBC, ur 6-10(A) 0 - 5 /HPF RBC, ur 3-5(A) 0 - 2 /HPF [facility] Epithelial cells, squamous, ur >50(A) 0 - 5 /HPF [facility] Comment:Suggestive of contam ination. Consider recollection by clean catch. Bacteria, ur Trace(A) [facility] Mucous, ur Present(A) [facility] Culture Reflex Comment Reflex conditions for urine culture (WBC >10) not met. [facility] Urine 01/07/2025 1:56 AM CDT 01/07/2025 2:02 AM CDT us Tin Evans MD LAB URINE ORDERABLES Final Resul t Performing Organization Address [facility] de Phone Number [address] [employer] [place], [place] [id number] * eGFR (01/07/2025 1:52 AM CDT) Pathologist [facility] eGFR >90 >=60 mL/min/1. 73 m2 Comment: Interpretive Data Reference Interval Normal >/= 90 mL/min/1.73m2 Mildly decreased* 60 - 89 mL/min/1.73m2 Mildly to moderately decreased 45 - 59 mL/min/1.73m2 Moderately to severely decreased 30 - 44 mL/min/1.73m2 Severely decreased 15 - 29 mL/min/1.73m2 Kidney Failure < 15 mL/min/1.73m2 *Relative to young adult level Estimated glomerular filtration rate is determined by the 2020 CKD-EPI equation recommended by the National Kidney Foundation (A Unifying Approach to GFR Estimation: Recommendations of the NKF-ASK Task Force on Reassessing the Inclusion of Race in Diagnosing Kidney Disease, JASN 2020). The CKD-EPI equation should not be used for patients with unstable renal function and has not been validated in children and those over 70. Current interpretive data was last reviewed 2021. Blood 01/07/2025 1:52 AM CDT 01/07/2025 2:02 AM CDT us Tin Evans MD LAB BLOOD ORDERABLES Final Resul t [facility] [address] [facility] Department [place] [address] * (ABNORMAL) Differential, auto (01/07/2025 1:52 AM CDT) Pathologist [facility] Neutrophil abs 4.52 1.50 - 6.50 K/cumm Imm gran abs 0.02 0.00 - 0.10 K/cumm [facility] Lymphocyte abs 3.77(H) 0.80 - 3.30 K/cumm [facility] Monocyte abs 0.80 0.20 - 0.80 K/cumm [facility] Eosinophil abs 0.08 0.00 - 0.50 K/cumm [facility] Basophil abs 0.03 0.00 - 0.10 K/cumm [facility] Neutrophil pct 49.0 % [facility] Comment: Interpretive Data Percent cell count reference ranges are not reported, since discordance with absolute values may lead to misinterpretation of CBC data. Current Interpretive Data was last revised on 2017. Imm gran pct 0.2 % [facility] Comment: Interpretive Data Percent cell count reference ranges are not reported, since discordance with absolute values may lead to misinterpretation of CBC data. Current Interpretive Data was last revised on 2017. Lymphocyte pct 40.9 % [facility] Comment: Interpretive Data Percent cell count reference ranges are not reported, since discordance with absolute values may lead to misinterpretation of CBC data. Current Interpretive Data was last revised on 2017. Monocyte pct 8.7 % [facility] Comment: Interpretive Data Percent cell count reference ranges are not reported, since discordance with absolute values may lead to misinterpretation of CBC data. Current Interpretive Data was last revised on 2017. Eosinophil pct 0.9 % [facility] Comment: Interpretive Data Percent cell count reference ranges are not reported, since discordance with absolute values may lead to misinterpretation of CBC data. Current Interpretive Data was last revised on 2017. Basophil pct 0.3 % [facility] Comment: Interpretive Data Percent cell count reference ranges are not reported, since discordance with absolute values may lead to misinterpretation of CBC data. Current Interpretive Data was last revised on 2017. Blood 01/07/2025 1:52 AM CDT 01/07/2025 2:02 AM CDT us Tin Evans MD LAB BLOOD ORDERABLES Final Resul t [facility] [address] [facility] Department [place] [address] * (ABNORMAL) CBC with auto differential (01/07/2025 1:52 AM CDT) WBC 9.22 3.80 - 9.90 K/cumm Hgb 11.0(L) 11.9 - 15.5 g/dL [facility] Hct 35.5(L) 35.6 - 45.5 % [facility] Plt 361 150 - 400 K/cumm [facility] MPV 8.7(L) 9.1 - 12.3 fL [facility] RBC 4.77 3.90 - 5.20 M/cumm [facility] MCV 74.4(L) 81.3 - 96.4 fL [facility] MCH 23.1(L) 27.1 - 33.3 pg [facility] MCHC 31.0(L) 32.3 - 35.7 g/dL [facility] RDW CV 16.8(H) 11.1 - 14.9 % [facility] RDW SD 44.7 35.7 - 48.1 fL [facility] NRBC abs 0.00 0.00 - 0.01 K/cumm [facility] Blood Venous blood specimen / Unknown 01/07/2025 1:52 AM CDT 01/07/2025 2:02 AM CDT Tin Evans MD LAB BLOOD ORDERABLES Final Resul t Performing Organization Address City/[facility] Co de Phone Number [address] [place] [address] * Lipase (01/07/2025 1:52 AM CDT) Pathologist [facility] Lipase 27 10 - 99 Units/L Blood Venous blood specimen / Unknown 01/07/2025 1:52 AM CDT 01/07/2025 2:02 AM CDT Tin Evans MD LAB BLOOD ORDERABLES Final Resul t Performing Organization Address [facility] de Phone Number [address] [place] [address] * Comprehensive metabolic panel (01/07/2025 1:52 AM CDT) [facility] Sodium 138 135 - 145 mmol/L Potassium, pl 3.7 3.3 - 4.9 mmol/L [facility] Chloride 102 97 - 110 mmol/L [facility] CO2 23 22 - 32 mmol/L [facility] Anion gap 13 2 - 15 mmol/L [facility] BUN 14 6 - 25 mg/dL [facility] Creatinine 0.78 0.60 - 1.10 mg/dL [facility] Glucose 87 70 - 199 mg/dL [facility] Comment: Interpretive Data Fasting glucose >/= 126 mg/dl is diagnostic for diabetes. Fasting is defined as no caloric intake for at least 8 hours. Fasting glucose between 100 mg/dl to 125 mg/dl is diagnostic of prediabetes. In a patient with classic symptoms of hyperglycemia or hyperglycemic crisis, a random glucose >/= 200 mg/dl is diagnostic for diabetes. In the absence of unequivocal hyperglycemia, results should be confirmed by repeat testing. The classification and Diagnosis of Diabetes Diabetes Care 202; 46: S19-S40. Current interpretive data was last revised 2022. Calcium 9.4 8.5 - 10.3 mg/dL [facility] Bilirubin, total 0.3 0.1 - 1.2 mg/dL [facility] Protein, pl 8.2 6.5 - 8.5 g/dL [facility] Albumin 4.2 3.5 - 5.0 g/dL [facility] Alk phos 81 40 - 130 Units/L [facility] ALT 8 7 - 45 Units/L [facility] AST 16 10 - 45 Units/L [facility] Blood 01/07/2025 1:52 AM CDT 01/07/2025 2:02 AM CDT us Tin Evans MD LAB BLOOD ORDERABLES Final Resul t [facility] [address] [facility] Department of Laboratories [place], [place] [id number] * Influenza A/B, RSV, and COVID-19 PCR Nasopharyngeal (01/06/2025 11:02 AM CDT) COVID-19 RNA Negative Negative Influenza A RNA Negative Negative [facility] Influenza B RNA Negative Negative [facility] RSV RNA Negative Negative [facility] Comment: Interpretive data: Testing performed by [facility]. This test is performed using the [employer] Xpert Xpress CoV-2/Flu/RSV plus assay. This is a multiplex, real-time reverse transcriptase PCR assay intended for the qualitative detection of nucleic acid from SARS-CoV-2, influenza A, influenza B, and respiratory syncytial virus. This assay has been cleared by the [place] Food and Drug administration. The performance characteristics have been verified by the [facility]. Results must be considered in the clinical context, and a negative result does not rule out infection. Interpretive Data last revised 2023 Nasopharyngeal 01/06/2025 11 :02 AM CDT 01/06/2025 11:05 AM CDT Narrative REBECCA - 01/06/2025 12:05 PM CDT Is the Patient experiencing symptoms consistent with COVID?->Yes [facility]CRO[facility]OLOG[facility] - GENERAL OR DERABLES Final Result Performing Organization Address City/[facility]/ZIP Co de Phone Number REBECCA [address] [address] * Streptococcus Group A PCR Throat (01/06/2025 11:02 AM CDT) Strep A DNA Not Detected Not Detected Comment: This test is performed using the [employer] Xpert Group A Streptococcal Assay. This is a qualitative, real-time PCR assay that detects Group A Strep using throat specimens from patients suspected of having streptococcal pharyngitis. This assay does not detect other beta-hemolytic streptococci including Group C or Group G. Group C and G have been associated with pharyngitis and, occasionally, acute nephritis but do not cause rheumatic fever. If suspected, order Throat Culture, Routine. This assay has been cleared by the [place] Food and Drug Administration, and its performance characteristics have been verified by the performing laboratory. Throat 01/06/2025 11:0 2 AM CDT 01/06/2025 11:05 AM CDT [facility] - GENERAL OR DERABLES Final Result Performing Organization Address City/[facility] Co de Phone Number REBECCA [facility] [place] [address] from Last 3 Months Insurance [facility] Care Teams Registered Nurse Nursery Relationship Specialty Start Date End Date Bayron Cortes MD [address] [phone] PCP - General Family Medicine 10/01/23
[2025-04-07 06:53] VITALS: BP 104/76; PULSE 67; RESP 14; TEMP 36.7; O2SAT 100
[2025-04-07 06:56] LABS: Hematocrit 36.0 % (37.0-47.0); Hemoglobin 11.0 g/dL (12.0-15.0); Immature Granulocyte Percent A 0.3 % (0-0.5); Lymphocytes Absolute Auto 2.95 K/mm3 (0.9-3.2); Mean Corpuscular HGB Conc 30.6 g/dl (32-36); Mean Corpuscular Hemoglobin 23.9 pg (26-34); Mean Corpuscular Volume 78.3 fl (80-100); Nucleated Red Blood Cells Absolute Auto 0.000 K/mm3 (0.0-0.012); Nucleated Red Blood Cells Perc 0.0 % (0.0-0.2); Platelet Count Result 360 k/mm3 (150-375); Red Blood Count 4.60 M/mm3 (4.2-5.4); White Blood Count 6.9 K/mm3 (4.5-10.0)
[2025-04-07 07:02] LABS: BEDSIDEPREGUCG Negative (Negative)
[2025-04-07 07:02] LABS: Add Urine Microscopic? YES; Appearance Urine Clear (Clear); Glucose Urine UA Negative (Negative); Leukocyte Esterase Ur Trace LEU/UL (Negative); Nitrate Urine Negative (Negative); Non Pathogenic Casts 0-2; Specific Grav Ur 1.025 (1.001-1.035)
[2025-04-07 07:10] LABS: Alanine Aminotransferase 15 U/L (6-35); Albumin Level 4.6 g/dL (3.5-5.1); Alkaline Phosphatase 80 U/L (38-126); Anion Gap 9 mmol/L (4-12); Aspartate Amino Transferase 23 U/L (14-36); Bilirubin,Total 0.2 mg/dL (0.2-1.3); Blood Urea Nitrogen 16 mg/dL (7-17); Calcium 9.3 mg/dL (8.4-10.2); Carbon Dioxide 26 mmol/L (22-30); Chloride 104 mmol/L (98-107); Estimated CRCL calculation 103 ml/min; Estimated Glomerular Filt Rate > 60; Glucose 88 mg/dL (65-110); Lipase 73 U/L (23-300); Potassium 3.7 mmol/L (3.4-5.0); Sodium 139 mmol/L (137-145); Total Protein 8.8 g/dL (6.3-8.2)
--- NOTE | 2025-04-07 07:34 | PC.NURSE ---
Took report at [id number]
--- NOTE | 2025-04-07 07:55 | ED_ITS ---
HPI - Abdominal Pain General Chief Complaint: Abdominal Pain Stated Complaint: Abdominal pain and rectal bleeding Time Seen by Provider: 04/07/25 06:59 History of Present Illness HPI narrative: Patient presenting here with some slight left lower abdominal pain ongoing on and off for days, some nausea, and then noticed some bright red blood in her stool. Has never had this before. Related Data Allergies Allergy/AdvReac Type Severity Reaction Status Date / Time No Known Allergies Allergy Verified 04/07/25 06:33 Review of Systems 2 Review of Systems: All systems reviewed & are unremarkable except as noted in HPI and below Exam 2 Narrative: EXAMINATION OF ORGAN SYSTEMS/BODY AREAS: Constitutional: Vital signs per nursing GENERAL:No acute distress, non-toxic appearing. HEAD: Normal with no signs of head trauma. EYES: EOMI, conjunctiva normal ENT: Hearing grossly intact LUNGS: Nonlabored breathing. HEART: Regular rate and rhythm ABD: Soft, nontender to palpation RECTAL: Some mucusy bloody stool in vault EXT: Normal range of motion SKIN: No rashes or lesions. NEURO: Alert. No gross focal sensory or strength deficits. PSYCH: Normal affect Course Vital Signs Vital signs: Vital Signs Temperature 98.0 F 04/07/25 06:53 Pulse Rate 67 04/07/25 06:53 Respiratory Rate 14 04/07/25 06:53 Blood Pressure 104/76 04/07/25 06:53 Pulse Oximetry 100 04/07/25 06:53 Temperature 98.0 F 04/07/25 06:53 Pulse Rate 67 04/07/25 06:53 Respiratory Rate 14 04/07/25 06:53 Blood Pressure 104/76 04/07/25 06:53 Pulse Oximetry 100 04/07/25 06:53 [facility] Narrative Medical decision making narrative: Electronic medical record was reviewed. Patient presented to the ED with complaint of abdominal pain and some bright red blood in stool. Vitals were within acceptable limits. Physical exam revealed soft abdomen, very minimal left lower quadrant tenderness. IV access was established by nursing staff. CBC, BMP, lipase, LFTs, bilirubin and alk phos were obtained. Labs were pertinent for normal white count, hemoglobin stable at 11. Decision was made to obtain a CT-abdomen to evaluate for acute abdominal process. CT-abdomen per radiology interpretation is unremarkable for acute intra-abdominal process, no signs of hydronephrosis, cholecystitis, appendicitis. On reevaluation, the patient states that they are feeling fine, I did order dose of bentyl. There were no witnessed episodes of vomiting in the emergency department. They are not complaining of any new abdominal pain. Repeat examination did not show any significant guarding or rebound. No new tenderness. At this time I do not feel there is any further emergent treatment to be provided. The patient was given strict return precautions, if they are to develop any worsening abdominal pain, vomiting, or blood in the vomit they are to return to the emergency department immediately. Patient verbally acknowledges understanding these directions. The patient was informed of the above diagnostic test findings. No further workup is necessary at this time. They will be discharged home with prescriptions. They were advised to follow-up with GI in 2 days. The patient feels that this is appropriate medical decision making and verbalizes an understanding of the discharge instructions. Differential Diagnosis Differential Diagnosis: Hemorrhoids, colitis, diarrhea, diverticulitis, etc. Lab Data 04/07/25 06:48 04/07/25 06:48 Labs: Lab Results 04/07/25 04/07/25 Range/Units 06:48 06:51 WBC 6.9 (4.5-10.0) K/mm3 RBC 4.60 (4.2-5.4) M/mm3 Hgb 11.0 L (12.0-15.0) g/dL Hct 36.0 L (37.0-47.0) % MCV 78.3 L (80-100) fl MCH 23.9 L (26-34) pg MCHC 30.6 L (32-36) g/dl RDW 16.1 H (11.5-14.5) % Plt Count 360 (150-375) k/mm3 MPV 8.5 (7.4-10.4) fl Immature Gran % (Auto) 0.3 (0-0.5) % Neut % (Auto) 48.1 (45.5-73.1) % Lymph % (Auto) 42.5 (18.3-44.2) % [place] % (Auto) 8.1 (2.6-8.5) % Eos % (Auto) 0.6 (0-4.4) % Baso % (Auto) 0.4 (0.2-1.2) % Lymph # (Auto) 2.95 (0.9-3.2) K/mm3 [place] # (Auto) 0.6 (0.1-0.6) K/mm3 Eos # (Auto) 0.0 (0-0.3) K/mm3 Baso # (Auto) 0.0 (0.0-0.1) K/mm3 Abs Immat Gran (auto) 0.02 (0.00-0.031) K/mm3 Absolute Neuts (auto) 3.3 (1.3-6.7) K/mm3 Absolute Nucleated RBC 0.000 (0.0-0.012) K/mm3 Nucleated RBC % 0.0 (0.0-0.2) % Sodium 139 (137-145) mmol/L Potassium 3.7 (3.4-5.0) mmol/L Chloride 104 (98-107) mmol/L Carbon Dioxide 26 (22-30) mmol/L Anion Gap 9 (4-12) mmol/L BUN 16 (7-17) mg/dL Creatinine 0.83 (0.7-1.0) mg/dL Estim Creat Clear Calc 103 ml/min Estimated GFR > 60 (59 - ) Glucose 88 (65-110) mg/dL Calcium 9.3 (8.4-10.2) mg/dL Total Bilirubin 0.2 (0.2-1.3) mg/dL AST 23 (14-36) U/L ALT 15 (6-35) U/L Alkaline Phosphatase 80 (38-126) U/L Total Protein 8.8 H (6.3-8.2) g/dL Albumin 4.6 (3.5-5.1) g/dL Lipase 73 (23-300) U/L Urine Color Yellow (Yellow) Urine Appearance Clear (Clear) Urine pH 6.5 (5.0-9.0) Ur Specific [place] 1.025 (1.001-1.035) Urine Protein Negative (Negative) mg/dL Urine Glucose (UA) Negative (Negative) mg/dL Urine Ketones Negative (Negative) mg/dL Ur Blood (Man) 1+ H (Negative) Urine Nitrate Negative (Negative) Urine Bilirubin Negative (Negative) Urine Urobilinogen 0.2 (<2.0) mg/dL Leukocyte Esterase Rfl Trace H (Negative) FRANCISCA/UL Urine RBC 6-10 H (0-2) /hpf Urine WBC 0-5 (0-3) /hpf Ur Squamous Epith Cells Occasional (Few) /hpf Urine Bacteria None seen /hpf Urine Casts 0-2 POC Urine HCG, Qual Negative (Negative) Imaging Data Radiologist's impression: ITS Impressions Abdomen/Pelvis CT 04/07/25 08:30 IMPRESSION: 1. No discrete lesion or mass seen to explain source of bleeding. Evaluation of the large intestine somewhat limited as above. 2. Small hiatal hernia. Discharge Plan Discharge Clinical Impression: Rectal bleeding Patient Disposition: Home Condition: Stable Instructions: Gastrointestinal Bleeding (ED), Abdominal Pain (ED) Additional Instructions: You can take the medications as prescribed, and please follow-up with GI. You can always return to the ER for any further issues especially if you have more bleeding, pain or anything else concerning. Patient Language: Icelandic Prescriptions: New famotidine 20 mg tablet 20 mg PO DAILY Qty: 30 0RF dicyclomine 20 mg tablet 20 mg PO TID PRN (Reason: abdominal pain) Qty: 30 0RF ondansetron 4 mg tablet,disintegrating 4 mg PO Q8H PRN (Reason: nausea and vomiting) Qty: 10 0RF No Action naproxen 375 mg tablet 375 mg PO BID Qty: 14 0RF nitrofurantoin monohyd/m-cryst [Macrobid] 100 mg capsule 100 mg PO Q12H 5 Days Qty: 10 0RF Rx Instructions: must administer with a meal/food Follow-up/Referrals: PHYSICIAN NOT ON STAFF,NONSTAFF [Primary Care Provider] Wes Monsivais MD [Physician, Gastroenterology] - 3 Days
--- OUTSIDE RECORDS SUMMARY | 2025-04-07 09:19 | XMS_ITS | Clinical Summary ---
Author Organization [facility] Address [address] [place] [id number] Care Team Providers Care Mechanical Technician Name Role Phone Bayron Cortes MD Primary Care Provider [phone] Allergies No known active allergies Medications ondansetron [...] Type Department Care Team Description 03/03/[address] [address] Suzette Celeste RN 03/02/2025 4:46 AM ROTARY SCREEN PRINTING MACHINE OPERATOR - 03/02/2025 6:36 AM ROTARY SCREEN PRINTING MACHINE OPERATOR Emergency [address] [address] Discharge Disposition: Left without being seen 01/22/2025 Patient Self-Triage [facility] Health[facility]/ Physicians [address] [place] [id number] Ovidio Bui Provider 01/07/2025 3:20 AM CDT - 01/07/2025 4:01 AM CDT Emergency [address] [address] Abdominal pain (Primary Dx); Vaginal discharge; Viral URI; Anemia, unspecified type Discharge Disposition: Discharge to home or self care 01/07/[address] [address] Suzette Celeste RN 01/06/2025 10:51 AM CDT - 01/06/2025 1:18 PM CDT Emergency [address] [address] Discharge Disposition: Left without being seen from [...] Comments Blood Pressure 126/81 03/02/2025 4:50 AM ROTARY SCREEN PRINTING MACHINE OPERATOR Pulse 85 03/02/2025 4:50 AM ROTARY SCREEN PRINTING MACHINE OPERATOR Temperature 37.1 C (98.8 F) 03/02/2025 4:50 AM ROTARY SCREEN PRINTING MACHINE OPERATOR Respiratory Rate 18 03/02/2025 4:50 AM ROTARY SCREEN PRINTING MACHINE OPERATOR Oxygen Saturation 100% 03/02/2025 4:50 AM ROTARY SCREEN PRINTING MACHINE OPERATOR Inhaled Oxygen Concentration - - Weight 87.5 [...] URINALYSIS, MICROSCOPIC ONLY STAT 03/02/2025 5:10 AM ROTARY SCREEN PRINTING MACHINE OPERATOR URINE CULTURE STAT 03/02/2025 5:10 AM ROTARY SCREEN PRINTING MACHINE OPERATOR URINALYSIS AND REFLEX TO MICROSCOPIC AND CULTURE STAT 03/02/2025 5:10 AM ROTARY SCREEN PRINTING MACHINE OPERATOR POCT HCG, URINE Routine 03/02/2025 5:00 AM ROTARY SCREEN PRINTING MACHINE OPERATOR EGFR STAT 03/02/2025 4:59 AM ROTARY SCREEN PRINTING MACHINE OPERATOR DIFFERENTIAL AUTO STAT 03/02/2025 4:5 9 AM ROTARY SCREEN PRINTING MACHINE OPERATOR ANTIBODY SCREEN STAT 03/02/2025 4:59 AM ROTARY SCREEN PRINTING MACHINE OPERATOR ABO/RH STAT 03/02/2025 4:59 AM ROTARY SCREEN PRINTING MACHINE OPERATOR TYPE AND SCREEN STAT 03/02/2025 4:59 AM ROTARY SCREEN PRINTING MACHINE OPERATOR COMPREHENSIVE METABOLIC PANEL STAT 03/02/2025 4:59 AM ROTARY SCREEN PRINTING MACHINE OPERATOR CBC WITH AUTO DIFFERENTIAL STAT 03/02/2025 4:59 AM ROTARY SCREEN PRINTING MACHINE OPERATOR VAGINITIS PANEL Routine 01/07/2025 3:47 AM CDT [...] microscopic and culture Urine (03/02/2025 5:10 AM ROTARY SCREEN PRINTING MACHINE OPERATOR) Color, ur Red(A) Yellow Clarity, ur Turbid(A) Clear [facility] Specific gravity, ur 1.035(H) 1.003 - 1.030 [facility] pH, urine 6.5 [facility] Comment: Interpretive Data U rine pH is affected by diet, medications, systemic acid-base disturbances, and renal tubular function. pH may affect urinary stone formation. For example, urine pH below 6.0 may help reduce the tendency for calcium phosphate stones and pH greater than 6.0 may reduce the tendency for uric acid stone formation. Source: [facility] [employer] Current Interpretive Data was last revised on 2017 Protein, ur ql 1+(A) Negative [facility] Glucose, ur ql Negative Negative [facility] Ketones, ur Trace Negative [facility] Bilirubin, ur Negative Negative [facility] Blood, ur 3+(A) Negative [facility] Urobilinogen, ur 2.0(A) <2.0 mg/dL [facility] Nitrite, ur Negative Negative [facility] Leukocyte esterase, ur 3+(A) Negative [facility] UA reflex comment Reflex to microscopic UA will be performed. [facility] Urine 03/02/2025 5:10 AM ROTARY SCREEN PRINTING MACHINE OPERATOR 03/02/2025 5:14 AM ROTARY SCREEN PRINTING MACHINE OPERATOR Ernestine CREWS LAB MICROBIOLOGY - GENERAL ORDE RABLES Final Result Performing Organization Address [facility] de Phone Number [address] [address] * (ABNORMAL) Urinalysis, microscopic only (03/02/2025 5:10 AM ROTARY SCREEN PRINTING MACHINE OPERATOR) WBC, ur 21-50(A) 0 - 5 /HPF RBC, ur >50(A) 0 - 2 /HPF [facility] Epithelial cells, squamous, ur 6-10(A) 0 - 5 /HPF [facility] Comment:Suggestive of contam ination. Consider recollection by clean catch. Mucous, ur Present(A) [facility] Culture Reflex Comment Reflex to urine culture will be performed. [facility] Urine 03/02/2025 5:10 AM ROTARY SCREEN PRINTING MACHINE OPERATOR 03/02/2025 5:14 AM ROTARY SCREEN PRINTING MACHINE OPERATOR us Ernestine CREWS LAB URINE ORDERABLES Final Resu lt Performing Organization Address [facility] de Phone Number [address] [address] * Urine culture Urine (03/02/2025 5:10 AM ROTARY SCREEN PRINTING MACHINE OPERATOR) Report Final Report: Less than 100,000 colonies/mL (clinically insignificant growth based on current clinical standards) Comment:Testing performed by : [facility], [address] [facility], [place]., [address] Organism (CLINICALLY INSIGNIFICANT GROWTH [facility] Urine 03/02/2025 5:10 AM ROTARY SCREEN PRINTING MACHINE OPERATOR 03/02/2025 9:04 AM ROTARY SCREEN PRINTING MACHINE OPERATOR Narrative [facility] - 03/03/2025 10:54 AM ROTARY SCREEN PRINTING MACHINE OPERATOR Urine culture reflexed based upon urinalysis results. Testing performed by [facility] ([phone]) us Ernestine CREWS LAB MICROBIOLOGY - GENERAL ORDE RABLES Final Result [facility] BELLA [address] [facility] Department [place] [address] * POCT hCG, urine (03/02/2025 5:00 AM ROTARY SCREEN PRINTING MACHINE OPERATOR) HCG, ur, POC Negative Negative Lot Number [id number] QC Backgroud Clear Acceptable QC Control Line Acceptable Urine 03/02/2025 5:00 AM ROTARY SCREEN PRINTING MACHINE OPERATOR Ernestine CREWS POINT OF CARE TEST ORDERABLES F inal Result * eGFR (03/02/2025 4:59 AM ROTARY SCREEN PRINTING MACHINE OPERATOR) eGFR >90 >=60 mL/min/1. 73 m2 Comment: [...] last reviewed 2021. Blood 03/02/2025 4:59 AM ROTARY SCREEN PRINTING MACHINE OPERATOR 03/02/2025 5:14 AM ROTARY SCREEN PRINTING MACHINE OPERATOR us Ernestine CREWS LAB BLOOD ORDERABLES Final Resu lt [facility] BELLA [address] [facility] Department [place] [address] * Differential, auto (03/02/2025 4:59 AM ROTARY SCREEN PRINTING MACHINE OPERATOR) Neutrophil abs 4.03 1.50 - 6.50 K/cumm Imm gran abs 0.01 0.00 - 0.10 K/cumm [facility] Lymphocyte abs 3.06 0.80 - 3.30 K/cumm [facility] Monocyte abs 0.52 0.20 - 0.80 K/cumm [facility] Eosinophil abs 0.06 0.00 - 0.50 K/cumm [facility] Basophil abs 0.03 0.00 - 0.10 K/cumm [facility] Neutrophil pct 52.3 % [facility] Comment: Interpretive Data Percent cell count reference ranges are not reported, since discordance with absolute values may lead to misinterpretation of CBC data. Current Interpretive Data was last revised on 2017. Imm gran pct 0.1 % [facility] Comment: Interpretive Data Percent cell count reference ranges are not reported, since discordance with absolute values may lead to misinterpretation of CBC data. Current Interpretive Data was last revised on 2017. Lymphocyte pct 39.7 % [facility] Comment: Interpretive Data Percent cell count reference ranges are not reported, since discordance with absolute values may lead to misinterpretation of CBC data. Current Interpretive Data was last revised on 2017. Monocyte pct 6.7 % [facility] Comment: Interpretive Data Percent cell count reference ranges are not reported, since discordance with absolute values may lead to misinterpretation of CBC data. Current Interpretive Data was last revised on 2017. Eosinophil pct 0.8 % [facility] Comment: Interpretive Data Percent cell count reference ranges are not reported, since discordance with absolute values may lead to misinterpretation of CBC data. Current Interpretive Data was last revised on 2017. Basophil pct 0.4 % [facility] Comment: Interpretive Data Percent cell count reference ranges are not reported, since discordance with absolute values may lead to misinterpretation of CBC data. Current Interpretive Data was last revised on 2017. Blood 03/02/2025 4:59 AM ROTARY SCREEN PRINTING MACHINE OPERATOR 03/02/2025 5:14 AM ROTARY SCREEN PRINTING MACHINE OPERATOR Ernestine CREWS LAB BLOOD ORDERABLES Final Resu lt REBECCA BELLA [address] [place] [address] * (ABNORMAL) CBC with auto differential (03/02/2025 4:59 AM ROTARY SCREEN PRINTING MACHINE OPERATOR) [facility] WBC 7.71 3.80 - 9.90 K/cumm Hgb 10.6(L) 11.9 - 15.5 g/dL [facility] Hct 35.1(L) 35.6 - 45.5 % [facility] Plt 418(H) 150 - 400 K/cumm [facility] MPV 8.6(L) 9.1 - 12.3 fL [facility] RBC 4.48 3.90 - 5.20 M/cumm [facility] MCV 78.3(L) 81.3 - 96.4 fL [facility] MCH 23.7(L) 27.1 - 33.3 pg [facility] MCHC 30.2(L) 32.3 - 35.7 g/dL [facility] RDW CV 16.7(H) 11.1 - 14.9 % [facility] RDW SD 47.7 35.7 - 48.1 fL [facility] NRBC abs 0.00 0.00 - 0.01 K/cumm [facility] Blood Venous blood specimen / Unknown 03/02/2025 4:59 AM ROTARY SCREEN PRINTING MACHINE OPERATOR 03/02/2025 5:14 AM ROTARY SCREEN PRINTING MACHINE OPERATOR Ernestine CREWS LAB BLOOD ORDERABLES Final Resu lt REBECCA [address] [place] [address] * ABO/Rh (03/02/2025 4:59 AM ROTARY SCREEN PRINTING MACHINE OPERATOR) [facility] ABO/Rh O Negative Blood 03/02/2025 4:59 AM ROTARY SCREEN PRINTING MACHINE OPERATOR 03/02/2025 5:14 AM ROTARY SCREEN PRINTING MACHINE OPERATOR Narrative [facility] - 03/02/2025 5:51 AM ROTARY SCREEN PRINTING MACHINE OPERATOR Has the patient had Daratumumab or Isatuximab in the past 6 months?->Unknown Ernestine CREWS LAB BLOOD BANK TEST ORDERABLES Final Result Performing Organization Address [facility] de Phone Number [address] [address] * Antibody screen (03/02/2025 4:59 AM ROTARY SCREEN PRINTING MACHINE OPERATOR) [facility] Oziel, indirect, Gel Interpretation Negative ABSC Blood 03/02/2025 4:59 AM ROTARY SCREEN PRINTING MACHINE OPERATOR 03/02/2025 5:14 AM ROTARY SCREEN PRINTING MACHINE OPERATOR Narrative [facility] - 03/02/2025 5:51 AM ROTARY SCREEN PRINTING MACHINE OPERATOR Has the patient had Daratumumab or Isatuximab in the past 6 months?->Unknown Ernestine CREWS LAB BLOOD BANK TEST ORDERABLES Final Result Performing Organization Address [facility] Phone Number [address] [address] * Comprehensive metabolic panel (03/02/2025 4:59 AM ROTARY SCREEN PRINTING MACHINE OPERATOR) [facility] Sodium 141 135 - 145 mmol/L Potassium, pl 4.3 3.3 - 4.9 mmol/L [facility] Chloride 106 97 - 110 mmol/L [facility] CO2 24 22 - 32 mmol/L [facility] Anion gap 11 2 - 15 mmol/L [facility] BUN 19 6 - 25 mg/dL [facility] Creatinine 0.69 0.60 - 1.10 mg/dL [facility] Glucose 98 70 - 199 mg/dL [facility] Comment: Interpretive Data Fasting glucose >/= 126 [...] 2022. Calcium 9.2 8.5 - 10.3 mg/dL [facility] Bilirubin, total <0.2 0.1 - 1.2 mg/dL [facility] Protein, pl 7.8 6.5 - 8.5 g/dL [facility] Albumin 4.1 3.5 - 5.0 g/dL [facility] Alk phos 77 40 - 130 Units/L [facility] ALT 8 7 - 45 Units/L [facility] AST 16 10 - 45 Units/L [facility] Blood 03/02/2025 4:59 AM ROTARY SCREEN PRINTING MACHINE OPERATOR 03/02/2025 5:14 AM ROTARY SCREEN PRINTING MACHINE OPERATOR Ernestine CREWS LAB BLOOD ORDERABLES Final Resu lt [facility] [address] [facility] Department [place] [address] * Vaginitis panel Vaginal (01/07/2025 3:47 AM CDT) Bacterial Vaginosis Not Detected Not Detected Comment:A negative result do es not preclude a possible infection. Results should be considered in conjunction with clinical presentation to determine the disease status. Geog[employer] group Not Detected Not Detected [facility] [place] glabrata/ krusei Not Detected Not Detected [facility] Trichomonas DNA Not Detected Not Detected [facility] Vaginal 01/07/2025 3:47 AM CDT 01/07/2025 3:49 AM CDT Narrative [facility] - 01/07/2025 5:06 AM CDT The [employer] Xpert Xpress MVP test detects DNA targets [...] this test have been verified by the [facility]. The [employer] Xpert Xpress MVP test detects DNA targets [...] this test have been verified by the [facility]. us Thai CREWS LAB MICROBIOLOGY - GENERAL O RDERABLES Final Result [facility] [address] [facility] Department [place] [address] * POCT hCG, urine (01/07/2025 1:58 AM CDT) HCG, ur, POC Negative Negative Lot Number [id number] QC Backgroud Clear Acceptable QC Control Line Acceptable Urine 01/07/2025 1:58 AM CDT Tin Evans MD POINT OF CARE TEST ORDERABLES Fi nal Result * (ABNORMAL) Urinalysis reflex to microscopic and culture Urine (01/07/2025 1:56 AM CDT) Color, ur Yellow Yellow Clarity, ur Cloudy(A) Clear [facility] Specific gravity, ur 1.032(H) 1.003 - 1.030 [facility] pH, urine 6.0 [facility] Comment: Interpretive Data U rine pH is affected by diet, medications, systemic acid-base disturbances, and renal tubular function. pH may affect urinary stone formation. For example, urine pH below 6.0 may help reduce the tendency for calcium phosphate stones and pH greater than 6.0 may reduce the tendency for uric acid stone formation. Source: [facility] [employer] Current Interpretive Data was last revised on 2017 Protein, ur ql 1+(A) Negative [facility] Glucose, ur ql Negative Negative [facility] Ketones, ur Trace Negative [facility] Bilirubin, ur Negative Negative [facility] Blood, ur Negative Negative [facility] Urobilinogen, ur 2.0(A) <2.0 mg/dL [facility] Nitrite, ur Negative Negative [facility] Leukocyte esterase, ur 2+(A) Negative [facility] UA reflex comment Reflex to microscopic UA will be performed. [facility] Urine 01/07/2025 1:56 AM CDT 01/07/2025 2:02 AM CDT Tin Evans MD LAB MICROBIOLOGY - GENERAL ORDER YUSUF Final Result Performing Organization Address [facility] de Phone Number [address] [employer] [place], [place] [id number] * (ABNORMAL) Urinalysis, microscopic only (01/07/2025 1:56 AM CDT) Pathologist [facility] WBC, ur 6-10(A) 0 - 5 /HPF RBC, ur 3-5(A) 0 - 2 /HPF [facility] Epithelial cells, squamous, ur >50(A) 0 - 5 /HPF [facility] Comment:Suggestive of contam ination. Consider recollection by clean catch. Bacteria, ur Trace(A) [facility] Mucous, ur Present(A) [facility] Culture Reflex Comment Reflex conditions for urine culture (WBC >10) not met. [facility] Urine 01/07/2025 1:56 AM CDT 01/07/2025 2:02 AM CDT us Tin Evans MD LAB URINE ORDERABLES Final Resul t Performing Organization Address [facility] Co de Phone Number [address] [employer] [place], [place] [id number] * eGFR (01/07/2025 1:52 AM CDT) Pathologist [facility] eGFR >90 >=60 mL/min/1. 73 [...] MD LAB BLOOD ORDERABLES Final Resul t [facility] [address] [facility] Department [place] [address] * (ABNORMAL) Differential, auto (01/07/2025 1:52 AM CDT) Pathologist [facility] Neutrophil abs 4.52 1.50 - 6.50 K/cumm Imm gran abs 0.02 0.00 - 0.10 K/cumm [facility] Lymphocyte abs 3.77(H) 0.80 - 3.30 K/cumm [facility] Monocyte abs 0.80 0.20 - 0.80 K/cumm [facility] Eosinophil abs 0.08 0.00 - 0.50 K/cumm [facility] Basophil abs 0.03 0.00 - 0.10 K/cumm [facility] Neutrophil pct 49.0 % [facility] Comment: Interpretive Data Percent cell count reference ranges are not reported, since discordance with absolute values may lead to misinterpretation of CBC data. Current Interpretive Data was last revised on 2017. Imm gran pct 0.2 % [facility] Comment: Interpretive Data Percent cell count reference ranges are not reported, since discordance with absolute values may lead to misinterpretation of CBC data. Current Interpretive Data was last revised on 2017. Lymphocyte pct 40.9 % [facility] Comment: Interpretive Data Percent cell count reference ranges are not reported, since discordance with absolute values may lead to misinterpretation of CBC data. Current Interpretive Data was last revised on 2017. Monocyte pct 8.7 % [facility] Comment: Interpretive Data Percent cell count reference ranges are not reported, since discordance with absolute values may lead to misinterpretation of CBC data. Current Interpretive Data was last revised on 2017. Eosinophil pct 0.9 % [facility] Comment: Interpretive Data Percent cell count reference ranges are not reported, since discordance with absolute values may lead to misinterpretation of CBC data. Current Interpretive Data was last revised on 2017. Basophil pct 0.3 % [facility] Comment: Interpretive Data Percent cell count reference ranges are not reported, since discordance with absolute values may lead to misinterpretation of CBC data. Current Interpretive Data was last revised on 2017. Blood 01/07/2025 1:52 AM CDT 01/07/2025 2:02 AM CDT us Tin Evans MD LAB BLOOD ORDERABLES Final Resul t [facility] [address] [facility] Department [place] [address] * (ABNORMAL) CBC with auto differential (01/07/2025 1:52 AM CDT) WBC 9.22 3.80 - 9.90 K/cumm Hgb 11.0(L) 11.9 - 15.5 g/dL [facility] Hct 35.5(L) 35.6 - 45.5 % [facility] Plt 361 150 - 400 K/cumm [facility] MPV 8.7(L) 9.1 - 12.3 fL [facility] RBC 4.77 3.90 - 5.20 M/cumm [facility] MCV 74.4(L) 81.3 - 96.4 fL [facility] MCH 23.1(L) 27.1 - 33.3 pg [facility] MCHC 31.0(L) 32.3 - 35.7 g/dL [facility] RDW CV 16.8(H) 11.1 - 14.9 % [facility] RDW SD 44.7 35.7 - 48.1 fL [facility] NRBC abs 0.00 0.00 - 0.01 K/cumm [facility] Blood Venous blood specimen / Unknown 01/07/2025 1:52 AM CDT 01/07/2025 2:02 AM CDT Tin Evans MD LAB BLOOD ORDERABLES Final Resul t Performing Organization Address City/[facility] Co de Phone Number [address] [place] [employer] [address] * Lipase (01/07/2025 1:52 AM CDT) Pathologist [facility] Lipase 27 10 - 99 Units/L Blood Venous blood specimen / Unknown 01/07/2025 1:52 AM CDT 01/07/2025 2:02 AM CDT Tin Evans MD LAB BLOOD ORDERABLES Final Resul t Performing Organization Address [facility] de Phone Number [address] [place] [address] * Comprehensive metabolic panel (01/07/2025 1:52 AM CDT) [facility] Sodium 138 135 - 145 mmol/L Potassium, pl 3.7 3.3 - 4.9 mmol/L [facility] Chloride 102 97 - 110 mmol/L [facility] CO2 23 22 - 32 mmol/L [facility] Anion gap 13 2 - 15 mmol/L [facility] BUN 14 6 - 25 mg/dL [facility] Creatinine 0.78 0.60 - 1.10 mg/dL [facility] Glucose 87 70 - 199 mg/dL [facility] Comment: Interpretive Data Fasting glucose >/= 126 [...] 2022. Calcium 9.4 8.5 - 10.3 mg/dL [facility] Bilirubin, total 0.3 0.1 - 1.2 mg/dL [facility] Protein, pl 8.2 6.5 - 8.5 g/dL [facility] Albumin 4.2 3.5 - 5.0 g/dL [facility] Alk phos 81 40 - 130 Units/L [facility] ALT 8 7 - 45 Units/L [facility] AST 16 10 - 45 Units/L [facility] Blood 01/07/2025 1:52 AM CDT 01/07/2025 2:02 AM CDT us Tin Evans MD LAB BLOOD ORDERABLES Final Resul t [facility] [address] [facility] Department of Laboratories [place], [place] [id number] * Influenza A/B, RSV, and COVID-19 PCR Nasopharyngeal (01/06/2025 11:02 AM CDT) COVID-19 RNA Negative Negative Influenza A RNA Negative Negative [facility] Influenza B RNA Negative Negative [facility] RSV RNA Negative Negative [facility] Comment: Interpretive data: Testing performed by [facility]. This test is performed using the [employer] Xpert Xpress CoV-2/Flu/RSV plus assay. This is a multiplex, real-time reverse transcriptase PCR assay intended for the qualitative detection of nucleic acid from SARS-CoV-2, influenza A, influenza B, and respiratory syncytial virus. This assay has been cleared by the [place] Food and Drug administration. The performance characteristics have been verified by the [facility]. Results must be considered in the clinical context, and a negative result does not rule out infection. Interpretive Data last revised 2023 Nasopharyngeal 01/06/2025 11 :02 AM CDT 01/06/2025 11:05 AM CDT Narrative RE[facility]CCA - 01/06/2025 12:05 PM CDT Is the Patient experiencing symptoms consistent with COVID?->Yes Nahomy CREWS LAB MICROBIOLOGY - GENERAL OR DERABLES Final Result Performing Organization Address City/[facility]/ZIP Co de Phone Number REBECCA [address] [address] * Streptococcus Group A PCR Throat (01/06/2025 11:02 AM CDT) Strep A DNA Not Detected Not Detected Comment: This test is performed using the [employer] Xpert Group A Streptococcal Assay. This is [...] OR DERABLES Final Result Performing Organization Address City/[facility] Co de Phone Number REBECCA [facility] [place] [address] from Last 3 Months Insurance [facility] Care Teams Mechanical Technician Relationship Specialty Start Date End Date Bayron Cortes MD [address] [phone] PCP - General Family Medicine 10/01/23
[2025-04-07] MEDS: DICYCLOMINE HCL 10 MG CAPSULE 20 MG PO (09:24)
== END 2025-04-07 09:46 | disposition home or self-care (01) ==
PROVIDERS: Student in an Organized Health Care Education/Training Program; Emergency Provider Emergency Medicine
DX: K62.5 Hemorrhage of anus and rectum (principal); K44.9 Diaphragmatic hernia without obstruction or gangrene
CPT/HCPCS: 36415; 74177; 80053; 81001; 81025; 83690; 85025; 99284; A9270; Q9967